=== PATIENT | male | born 1985 | race Hispanic/Latino ===

== ENCOUNTER 2019-04-05 21:57 | Emergency (ER) | payer SELFPAY ==
--- NOTE | 2019-04-05 23:09 | RAD ---
EXAM: Chest 2 views: HISTORY: Cough for one day COMPARISON: None. FINDINGS: There is a normal-sized cardiomediastinal silhouette. There is no evidence of consolidation, mass, or pleural effusion. The bones are unremarkable. IMPRESSION: No evidence of acute cardiopulmonary disease
== END 2019-04-05 23:27 | disposition home or self-care (01) ==
LOC: ERS 21:57
DX: J06.9 Acute upper respiratory infection, unspecified (principal)
CPT/HCPCS: 71046

== ENCOUNTER 2019-04-20 21:53 | Emergency (ER) | payer SELFPAY | END 2019-04-20 22:32 | disposition home or self-care (01) | LOC: ERS 21:53 | DX: L01.00 Impetigo, unspecified (principal) | CPT/HCPCS: 99283 ==

== ENCOUNTER 2019-11-24 14:50 | Emergency (ER) | payer SELFPAY | END 2019-11-24 16:05 | disposition home or self-care (01) | LOC: ERS 14:50 | DX: L03.116 Cellulitis of left lower limb (principal) | CPT/HCPCS: 99283 ==

== ENCOUNTER 2020-12-02 23:00 | Emergency (ER) | payer SELFPAY ==
[2020-12-03] MEDS ORDERED: Proparacaine 0.5% Opth 15 ML BOT ONE (01:39)
[2020-12-03] MEDS ORDERED: Fluorescein Opthalmic Strip ONE (01:39)
== END 2020-12-03 02:22 | disposition home or self-care (01) ==
LOC: ERS 23:00
DX: S05.01XA Injury of conjunctiva and corneal abrasion without foreign body, right eye, initial encounter (principal); X58.XXXA Exposure to other specified factors, initial encounter

== ENCOUNTER 2025-01-16 21:04 | Emergency (ER) | payer SELFPAY ==
[2025-01-16] MEDS ORDERED: Ketorolac Tromethamine 30 MG (1 mL) VIAL ONE (21:54)
[2025-01-16 22:17] LABS: #Basophils 0.03 10x3/uL (0.0-0.2); #Eosinophils 0.28 10x3/uL (0.0-0.7); #Monocytes 0.45 10x3/uL (0.11-0.59); #Neutrophils 1.91 10x3/uL (1.40-6.50); %Basophils 0.6 % (0.0-1.0); %Eosinophils 5.4 % (0.0-10.0); %Lymphocytes 48.5 % (21.0-51.0); %Monocytes 8.7 % (0.0-10.0); %Neutrophils 36.6 % (42.0-75.0); Hematocrit 39.3 % (42.0-52.0); Hemoglobin 13.4 g/dL (14.0-18.0); Mean Corpuscular Hemoglobin 30.9 pg (27.0-31.0); Mean Corpuscular Volume 90.6 fL (78.0-98.0); Platelet Count 184 10x3/uL (130-400); Red Blood Cell (RBC) Count 4.34 mill/uL (4.70-6.10); White Blood Cell (WBC) Count 5.20 10x3/uL (4.8-10.8)
[2025-01-16 22:22] LABS: ALT (SGPT) 29 U/L (Less than 45); AST (SGOT) 44 U/L (11-34); Albumin 3.6 g/dL (3.1-4.5); Alkaline Phosphatase 109 U/L (40-110); Anion Gap 12 mmol/L (10-20); BUN (Urea Nitrogen) 14 mg/dL (8.9-20.6); Bilirubin, Total 0.4 mg/dL (0.3-1.2); CK (CPK) 817 U/L (30-200); Calc. Creatinine Clearance 0 mL/min (70-130); Calcium 8.2 mg/dL (7.8-10.44); Carbon Dioxide 27 mmol/L (22-29); Chloride 104 mmol/L (98-107); Globulin 2.9 g/dL (2.4-3.5); Glucose 98 mg/dL (70-105); Potassium 3.5 mmol/L (3.5-5.1); Sodium 139 mmol/L (136-145)
[2025-01-16 22:27] LABS: Troponin I 0.016 ng/mL (< 0.028)
[2025-01-16 22:53] LABS: Bacteria/HPF None Seen HPF (None Seen); CAUTI Indications for Culture < 2yrs of age; Glucose, Urine (Dipstick) Normal (Negative); Leukocyte Negative Leu/uL (Negative); Protein, Urine (Dipstick) Negative (Neg-Trace); RBC/HPF 0-3 HPF (0-3); Specific Gravity, Urine 1.009 (1.002-1.036); WBC/HPF None Seen HPF (0-3)
[2025-01-16 22:57] LABS: Urine Culture Reflex Yes Yes
== END 2025-01-16 23:32 | disposition home or self-care (01) ==
LOC: ERS 21:04
DX: T67.5XXA Heat exhaustion, unspecified, initial encounter (principal); R07.9 Chest pain, unspecified; Z55.6 Problems related to health literacy
CPT/HCPCS: 80053; 81001; 82550; 84484; 85025; 87086; 93005; 96361; 96374; J1885